=== PATIENT | female | born 1935 | race Caucasian/White ===

== ENCOUNTER 2021-11-15 12:09 | Inpatient (IN) ==
[2021-11-15] MEDS ORDERED: Acetaminophen 325 MG TABLET PO PRN (14:30)
[2021-11-15] MEDS ORDERED: Melatonin 3 MG TABLET PO PRN (14:30)
[2021-11-15] MEDS ORDERED: Naloxone 0.4 MG/ML INJ IVP PRN (14:30)
[2021-11-15] MEDS ORDERED: Perflutren Lipid Microsphere 1.3 ML in 0.9 % Sodium Chloride 8.7 ML IVP PRN (15:05)
[2021-11-15] MEDS ORDERED: Isovue-370 500 ML BOTTLE IVP ONE (15:05)
[2021-11-15] MEDS ORDERED: *HR* Dextrose 50 % in Water (Syg) 50 ML SYRINGE IVP PRN (15:11)
[2021-11-15] MEDS ORDERED: D5% in Water 1,000 ML IVC PRN (15:11)
[2021-11-15] MEDS ORDERED: Dextrose 4 GM Chewable Tablets PO PRN ×2 (15:11)
[2021-11-15] MEDS: Insulin LISPRO 300 UNITS/3 ML VIAL SUBQ SCH (18:13)
[2021-11-15] MEDS: rOPINIRole 1 MG TABLET PO SCH (20:36)
[2021-11-15] MEDS ORDERED: Insulin LISPRO 300 UNITS/3 ML VIAL SUBQ SCH (21:00)
[2021-11-16 03:16] LABS: Basophils % 0.3 %; Immature Granulocytes % 0.3 % (0-4); Mean Corpuscular Hemoglobin 29.1 pg (28.0-33.3); Red Cell Distribution Width 13.7 % (11.5-14.5); White Blood Count 6.2 K/mcL (4.3-11.1)
[2021-11-16 03:18] LABS: Eosinophils # 0.1 K/mcL (0.0-0.6); Eosinophils % 1.4 %; Hematocrit 37.8 % (35.3-44.9); Hemoglobin 12.4 g/dL (11.5-15.4); Immature Platelets 4.3 % (1.1-6.1); Mean Corpuscular HGB Conc 32.8 g/dL (31.6-35.5); Mean Corpuscular Volume 88.7 fL (83.0-100.0); Mean Platelet Volume 10.6 fL (9.4-12.4); Monocytes # 0.6 K/mcL (0.0-1.3); Monocytes % 10.1 %; Neutrophils # 4.5 K/mcL (1.6-8.9); Platelet Count 131 K/mcL (140-400); Red Blood Count 4.26 M/mcL (3.82-4.97); Segmented Neutrophils % 71.9 %
[2021-11-16 03:32] LABS: BUN/Creatinine Ratio 28 (6-26); Blood Urea Nitrogen 18 mg/dL (8-23); Calcium 9.3 mg/dL (8.6-10.3); Carbon Dioxide 26 mEq/L (23-29); Chloride 106 mEq/L (98-107); Chol/HDL Ratio 2.2 (0-4.9); Cholesterol 101 mg/dL (< 200); Glucose 157 mg/dL (70-105); HDL Cholesterol 46 mg/dL (40-59); LDL Cholesterol,Calculated 35 mg/dL (< 100); Osmolality,Calculated 295 (280-300); Potassium 3.5 mEq/L (3.5-5.1); Sodium 140 mEq/L (136-145); Triglycerides 98 mg/dL (< 150); eGFR For African Americans > 60 (> 60); eGFR For Non-African Americans > 60 (> 60)
[2021-11-16 04:08] LABS: Estimated Average Glucose 217 mg/dl; Hemoglobin A1C 9.2 %
[2021-11-16] MEDS ORDERED: *HR* Heparin 5,000 UNIT/ML VIAL SQ SCH (08:15)
[2021-11-16] MEDS: rOPINIRole 1 MG TABLET PO SCH (08:56)
[2021-11-16] MEDS: Insulin LISPRO 300 UNITS/3 ML VIAL SUBQ SCH ×2 (08:57→11:50)
[2021-11-16 11:47] VITALS: BP 160/62; PULSE 69; TEMP 97.1; O2SAT 96
== END 2021-11-16 14:29 | disposition home or self-care (01) | DRG 66 ==
LOC: 2NENU
PROVIDERS: ADMIT Student in an Organized Health Care Education/Training Program; ATTEND Student in an Organized Health Care Education/Training Program